=== PATIENT | female | born 1985 | race Caucasian/White ===

== ENCOUNTER 2019-04-18 11:34 | Emergency (ER) | payer OTHER ==
[~2019-04-18] VITALS: Ht 172.7 cm; Wt 74.5 kg
[2019-04-18] MEDS ORDERED: MULTCAP PO (11:50)
[2019-04-18] MEDS ORDERED: NS 1,000 ML IV ONE (12:45)
[2019-04-18 13:24] LABS: BASO # 0.1 10^3/uL (0.0-0.2); BASO % 0.6 % (0.0-1.0); EOS # 0.1 10^3/uL (0.0-0.5); EOS % 1.1 % (0.0-3.0); HEMATOCRIT 39.5 % (36.0-47.0); HEMOGLOBIN 13.5 g/dl (12.0-15.5); LYMPH # 2.8 10^3/uL (1.5-5.0); LYMPH % 34.9 % (24.0-44.0); MEAN CORPUSCULAR HEMOGLOBIN 32.5 pg (27.0-33.0); MEAN CORPUSCULAR HGB CONC 34.2 g/dl (32.0-36.5); MONO # 0.8 10^3/uL (0.0-0.8); MONO % 9.8 % (0.0-5.0); NEUTROPHILS # 4.3 10^3/uL (1.5-8.5); NEUTROPHILS % 53.2 % (36.0-66.0); PLATELET COUNT, AUTOMATED 247 10^3/uL (150-450); RED BLOOD COUNT 4.16 10^6/uL (4.00-5.40); WHITE BLOOD COUNT 8.1 10^3/uL (4.0-10.0)
[2019-04-18 13:41] LABS: INR 1.04; PARTIAL THROMBOPLASTIN TIME 27.5 SECONDS (25.0-38.4); PROTHROMBIN TIME 13.3 SECONDS (11.8-14.0)
[2019-04-18 14:06] LABS: ALBUMIN 3.9 GM/DL (3.2-5.2); ALT/SGPT 27 U/L (12-78); BILIRUBIN,DIRECT 0.1 MG/DL (0.0-0.2); BILIRUBIN,TOTAL 0.5 MG/DL (0.2-1.0); BLOOD UREA NITROGEN 10 MG/DL (7-18); CALCIUM LEVEL 8.8 MG/DL (8.5-10.1); CARBON DIOXIDE LEVEL 26 MEQ/L (21-32); CHLORIDE LEVEL 109 MEQ/L (98-107); CK-MB VALUE MASS < 1.0 NG/ML (<3.6); CPK CREATINE PHOSPHOKINASE 118 U/L (26-192); CREATININE FOR GFR 0.82 MG/DL (0.55-1.30); FREE T4 1.06 NG/DL (0.76-1.46); GLOMERULAR FILTRATION RATE > 60.0 (>60); GLUCOSE, FASTING 103 MG/DL (70-100); LIPASE 134 U/L (73-393); MB/CK RELATIVE INDEX 0.85 (< OR =4); POTASSIUM SERUM 3.8 MEQ/L (3.5-5.1); SODIUM LEVEL 141 MEQ/L (136-145); TOTAL PROTEIN 7.3 GM/DL (6.4-8.2); TROPONIN I < 0.02 NG/ML (< 0.10)
[2019-04-18] MEDS ORDERED: ISOVUE-370 76% 100ML VIAL (Q9967) As Ordered ONE (14:14)
[2019-04-18 15:45] VITALS: BP 121/76
--- NOTE | 2019-04-18 15:48 | REP ---
CT pulmonary angiogram: With IV contrast. History: Rule out pulmonary embolism. Comparison studies: No comparison study. Contrast dose: 75 ML of Isovue [address] technique: Helical scanning is acquired and overlapping 1.5 mm and contiguous 3 mm axial images are reformatted. In addition, maximum intensity projection and multiplanar re-formation images are generated in sagittal and coronal imaging projections. CT pulmonary angiographic findings: There is good opacification of the pulmonary arterial tree. There is no CT evidence of pulmonary embolism. Thoracic aorta enhances homogeneously and is normal in coarse caliber. No aneurysm or dissection is seen. The lung garza are clear. No pleural or pericardial effusion is seen. No hilar or mediastinal mass or adenopathy is observed. Visualized upper abdominal structures are unremarkable. No bony abnormality is seen. Impression: No CT evidence of pulmonary embolus. Normal CT pulmonary angiogram. Electronically Signed by Edmond Coto MD 04/18/2019 03:40 P
--- NOTE | 2019-04-19 12:05 | ECGEPIP ---
[facility] - ED Test Date: 2019-04-18 Pat Name: CRISTINA NARVAEZ Department: Room: - Gender: Female [employer] System Admin: Susanna IRVIN : 1985 Requested By: Christos Cardoza Order Number: [id number] Reading MD: Chanel Mistry Measurements Intervals [place] Rate: 72 P: 75 NV: 158 QRS: 46 QRSD: 88 T: 46 QT: 379 QTc: 417 Interpretive Statements SINUS RHYTHM RIGHT VENTRICULAR CONDUCTION DELAY NO PRIOR Electronically Signed on 04-19-2019 12:04:57 EST by Chanel Mistry
== END 2019-04-18 16:13 | disposition home or self-care (01) ==
LOC: EDBD 11:34 → M ED 11:34
DX: R07.9 Chest pain, unspecified (principal); R06.02 Shortness of breath; Z86.73 Personal history of transient ischemic attack (TIA), and cerebral infarction without residual deficits
CPT/HCPCS: 71275; 80048; 80076; 82550; 82553; 83690; 84439; 84443; 84484; 85025; 85610; 85730; 87880; 93005; 93041; 94760; 96360; 99285; G0463; Q9967

== ENCOUNTER → 2019-05-15 | Outpatient (CLI) | payer OTHER ==
[~2019-05-15] MED LIST: ISOVUE-370 76% 100ML VIAL (Q9967) As Ordered ONE; MULTCAP PO
--- NOTE | 2019-05-15 10:17 | REP ---
CT neck soft tissues: 05/15/2019. Indication: Neck mass. Comparison: None. Technique: Axial images of the neck soft tissues were obtained following 75 ml IV Isovue 370 administration. Findings: There is no abnormal solid soft tissue mass, abnormal fluid collection or cervical lymphadenopathy. There is a benign appearing 5 mm low density focus within the left thyroid gland. The submandibular and parotid glands are unremarkable. The nondominant right vertebral artery predominately in ends as PICA. No significant ocular, intraorbital or intracranial abnormalities are detected. The airway is patent. No significant vascular abnormalities are present. The visualized lungs are clear. Impression: No abnormal solid soft tissue mass, abnormal fluid collection or cervical lymphadenopathy. Electronically Signed by Keegan Thorpe DO 05/15/2019 10:09 A
== END ==
LOC: M RAD 08:23
PROVIDERS: ATTEND Otolaryngology
DX: R22.1 Localized swelling, mass and lump, neck (principal)
CPT/HCPCS: 70491; Q9967